=== PATIENT | male | born 1995 ===

== ENCOUNTER 2017-03-18 22:39 | Emergency (ER) | payer BC ==
[2017-03-18 22:49] VITALS: BP 121/82; PULSE 84; TEMP 98.5; BMI 29.7
--- NOTE | 2017-03-18 23:00 | PDOC ---
History of Present Illness - General Chief Complaint: Injury Stated Complaint: LACERATION Time Seen by Provider: 03/18/17 22:41 History Source: Patient Exam Limitations: No Limitations - History of Present Illness Initial Comments: 03/18/17 23:06 This is a 21-year-old male who comes in complaining of a small laceration to his right eyebrow laterally secondary to an injury sustained to play basketball. Patient denies any loss of consciousness, headache, neck pain or any other complaints. Patient is otherwise healthy and his tetanus is up-to-date PAST MEDICAL HISTORY: no significant history PAST SURGICAL HISTORY: no significant history FAMILY HISTORY: no pertinant history SOCIAL HISTORY: Pt lives with family and is employed. MEDICATIONS: reviewed ALLERGIES: As per nursing notes Review of Systems General: No fevers or chills, no weakness, no weight loss HEENT: No change in vision. No sore throat,. No ear pain CardioVascular: No chest pain or shortness of breath Respiratory:No cough, or wheezing. Gastrointestinal: no nausea, vomitting, diarrhea or constipation, No rectal bleeding Genitourinary: No dysuria, hematuria, or frequency Musculoskeletal: No joint or muscle pain or swelling Neurologic: No headache, vertigo, dizziness or loss of consciousness Psychiatric: nor depression Skin: No rashes or easy bruising Endocrine: no increased thirst or abnormal weight change Allergic: no skin or latex allergy All other systems reviewed and normal GENERAL: The patient is awake, alert, and fully oriented, in no acute distress. HEAD: There is approximately 1 cm laceration superficial over the lateral right eyebrow. There is no bleeding at this time. EYES: Pupils equal, round and reactive to light, extraocular movements intact, sclera anicteric, conjunctiva clear. EXTREMITIES: Normal range of motion, no edema. NEUROLOGICAL: Normal speech, normal gait. grossly intact PSYCH: Normal mood, normal affect. SKIN: Warm, Dry, normal turgor, no rashes or lesions noted. Procedure note: Laceration was cleaned with peroxide and closed with Dermabond patient tolerated well Assessment and plan: This is a 21-year-old male who comes in complaining of laceration. Patient's laceration was cleaned and closed with Dermabond. Patient given Dermabond instructions and discharged. Past History - Past Medical History Allergies/Adverse Reactions: Allergies Allergy/AdvReac Type Severity Reaction Status Date / Time No Known Allergies Allergy Verified 03/18/17 22:44 Home Medications: Ambulatory Orders NK [No Known Home Medication] 03/18/17 COPD: No Other medical history: DENIES - Immunization History Td Vaccination: Yes Immunization Up to Date: Yes - Suicide/Smoking/Psychosocial Hx Smoking History: Never smoked Have you smoked in the past 12 months: No Information on smoking cessation initiated: No Hx Alcohol Use: No Drug/Substance Use Hx: No Substance Use Type: None *Physical Exam - Vital Signs Last Vital Signs Temp Pulse Resp BP Pulse Ox 98.5 F 84 16 121/82 100 03/18/17 22:46 03/18/17 22:46 03/18/17 22:46 03/18/17 22:46 03/18/17 22:46 *DC/Admit/Observation/Transfer Diagnosis at time of Disposition: Laceration of eyebrow Qualifiers: Encounter type: initial encounter Laterality: right Qualified Code(s): S01.111A - Laceration without foreign body of right eyelid and periocular area, initial encounter - Discharge Dispostion Disposition: HOME Condition at time of disposition: Stable Admit: No - Referrals - Patient Instructions Printed Discharge Instructions: DI for Laceration Repair With Dermabond Additional Instructions: Read over and follow Dermabond instructions. The most important part of it is is to keep it dry for 72 hours and do not use any petroleum based products on the glue as it will cause a glue to come off early this includes all antibiotic ointments or lotions/ Return to the emergency department immediately with ANY new, persistent or worsening symptoms. Continue any medications as previously prescribed by your physician. You should follow up with your primary doctor as soon as possible regarding today's emergency department visit. . Please make sure your doctor reviews the results of your emergency evaluation. Thank you for coming to the Emergency Department today for your care. It was a pleasure to see you today. Please note that your evaluation is INCOMPLETE until you follow-up with your doctor. - Post Discharge Activity
== END 2017-03-18 23:09 | disposition home or self-care (01) ==
LOC: FER 22:39
PROC: 0HQ1XZZ Repair Face Skin, External Approach (ICD-10-PCS; principal; 2017-03-18)
DX: S01.111A Laceration without foreign body of right eyelid and periocular area, initial encounter (principal); X58.XXXA Exposure to other specified factors, initial encounter; Y93.67 Activity, basketball; Y92.89 Other specified places as the place of occurrence of the external cause
CPT/HCPCS: 99281-25